=== PATIENT | male | born 1990 | race Caucasian/White ===

== ENCOUNTER → 2020-05-27 13:51 | Outpatient (CLI) | payer OTHER, SELFPAY ==
[2020-05-28 13:52] LABS: Semen Analysis Post Vas ABSENT
== END ==
PROVIDERS: PCP Family Medicine; Referring Provider Urology; Visit Provider Urology
DX: Z30.8 Encounter for other contraceptive management (principal)
CPT/HCPCS: 89321

== ENCOUNTER → 2022-07-04 | Outpatient (CLI) | payer BC, SELFPAY ==
[2022-07-04 22:10] LABS: Pathologist Review May foll; Semen Analysis Post Vas ABSENT
== END | disposition home or self-care (01) ==
LOC: LABSPEC 16:21
PROVIDERS: PCP Family Medicine; Visit Provider Urology
DX: Z30.2 Encounter for sterilization (principal)
CPT/HCPCS: 89321

== ENCOUNTER → 2024-11-25 | Outpatient (CLI) | payer BC, SELFPAY ==
--- NOTE | 2024-11-25 13:40 | RAD_ITS ---
EXAM: XR Right Ankle Complete, 3 or More Views CLINICAL INDICATION: SPRAIN OF UNSPECIFIED LIGAMENT OF RIGHT ANKLE, INITIAL ENCOUNTER TECHNIQUE: Frontal, lateral and oblique views of the right ankle. COMPARISON: No relevant prior studies available. FINDINGS: BONES/JOINTS: See below. SOFT TISSUES: Soft tissue swelling without acute fracture. RAD/Ankle min 3 Views IMPRESSION: 1. Soft tissue swelling without acute fracture. 2. If symptoms persist, further evaluation with CT is recommended. Reading Location[facility]
--- NOTE | 2024-11-25 13:40 | RAD_ITS ---
EXAM: XR Right Foot Complete, 3 or More Views CLINICAL INDICATION: SPRAIN OF UNSPECIFIED LIGAMENT OF RIGHT ANKLE, INITIAL ENCOUNTER TECHNIQUE: Frontal, lateral and oblique views of the right foot. COMPARISON: No relevant prior studies available. FINDINGS: BONES/JOINTS: See below. SOFT TISSUES: Soft tissue swelling without acute fracture. No radiopaque foreign body. RAD/Foot min 3 Views IMPRESSION: 1. Soft tissue swelling without acute fracture. 2. If symptoms persist, further evaluation with CT is recommended. Reading [facility]
== END | disposition home or self-care (01) ==
LOC: RAD 13:34
PROVIDERS: PCP Family Medicine; Referring Provider Nurse Practitioner Family; Visit Provider Nurse Practitioner Family
DX: S93.401A Sprain of unspecified ligament of right ankle, initial encounter (principal)
CPT/HCPCS: 73610; 73630